=== PATIENT | male | born 1990 | race Caucasian/White ===

== ENCOUNTER 2025-02-18 11:37 | Emergency (ER) | payer OTHER, SELFPAY ==
[2025-02-18 11:45] VITALS: BP 155/99; PULSE 68; TEMP 36.9; O2SAT 98; BMI 40.7
--- NOTE | 2025-02-18 12:12 | XR_ITS ---
The [address] [address] Patient Name: SILVIA CHEN MRN: [id number] date: 1990 Sex: M Assigned Patient Location: ED.MAIN Current Patient Location: ER Accession/Order Number: [id number] Exam Date: 02/18/2025 12:35 Report Date: 02/18/2025 13:04 At the request of: YOVANA CORONA MD Procedure: XR abdomen 1V SINGLE VIEW ABDOMEN CLINICAL DATA: Abdominal pain, heartburn, diarrhea and hematemesis COMPARISON: None Supine views of the abdomen and pelvis were obtained. There is air at the hepatic flexure. There is paucity of bowel gas throughout the remainder of the abdomen and pelvis. No significant colonic stool is seen. No soft tissue masses or abnormal calcifications are identified. There is dextroscoliotic curvature and degenerative changes at the spine. There is suspicion of old hip dysplasia on the left. XR/XR abdomen 1V IMPRESSION: NONSPECIFIC ABDOMEN WITH RELATIVE PAUCITY OF BOWEL GAS. Impression dictated by: Ct Lantigua M.D. 02/18/2025 1:04 PM Dictation Location: [place] [address] Electronically authenticated by: [id number] Y Date: 02/18/2025 13:04
[2025-02-18 12:34] LABS: Hematocrit 42.5 % (42.0-54.0); Hemoglobin 14.5 g/dL (14.0-18.0); Immature Granulocytes Abs Auto 0.05 10^3/uL (0.00-0.03); Immature Granulocytes Pct Auto 0.3 % (0.0-0.5); Lymphocytes Absolute Auto 1.7 10^3/uL (1.2-3.8); Mean Corpuscular HGB Conc 34.1 g/dL (29.9-35.2); Mean Corpuscular Hemoglobin 29.7 pg (25.9-34.0); Mean Corpuscular Volume 87.1 fL (80.0-94.0); Platelet Count 307 10^3/uL (150-450); Red Blood Count 4.88 10^6/uL (4.70-6.10); White Blood Count 17.2 10^3/uL (4.0-11.0)
[2025-02-18 12:48] LABS: Alanine Aminotransferase 33 U/L (16-63); Albumin Globulin Ratio 1.0; Albumin Level 4.2 g/dL (3.4-5.0); Alkaline Phosphatase 155 U/L (46-116); Anion Gap 13.3; Aspartate Amino Transferase 26 U/L (15-37); Blood Urea Nitrogen 28.0 mg/dL (7.0-18.0); Calcium 9.6 mg/dL (8.5-10.1); Carbon Dioxide 29.7 mmol/L (21.0-32.0); Chloride 104 mmol/L (98-107); Estimated GFR (African America >60 (>=60 mL/min/1.73m^2); Estimated GFR (Non-African Ame >60 (>=60 mL/min/1.73m^2); Globulin 4.0 g/dL; Glucose 106 mg/dL (74-106); Potassium 4.0 mmol/L (3.5-5.1); Sodium 143 mmol/L (136-145); Total Protein 8.2 g/dL (6.4-8.2)
--- NOTE | 2025-02-18 12:53 | US_ITS ---
The [address] [address] Patient Name: SILVIA CHEN MRN: [id number] date: 1990 Sex: M Assigned Patient Location: ER Current Patient Location: ER Accession/Order Number: [id number] Exam Date: 02/18/2025 12:55 Report Date: 02/18/2025 13:48 At the request of: YOVANA CORONA MD Procedure: US right upper quadrant LIMITED RIGHT UPPER QUADRANT ABDOMINAL ULTRASOUND CLINICAL HISTORY: Nausea, vomiting and abdominal pain COMPARISON: None The gallbladder is physiologically distended without shadowing calculi, wall thickening or pericholecystic fluid. No intra- or extrahepatic biliary dilatation is evident. The common duct measures 2 - 3 mm. No focal intrahepatic lesions were identified. There is appropriate hepatopetal flow within the main portal vein. The pancreas is poorly visualized due to bowel gas. Evaluation of the right kidney reveals no hydronephrosis or fluid within Mathis's pouch. US/US right upper quadrant IMPRESSION: NO GALLBLADDER PATHOLOGY. POORLY VISUALIZED PANCREAS. Impression dictated by: Ct Lantigua M.D. 02/18/2025 1:48 PM Dictation Location: [place] [address] Electronically authenticated by: [id number] Y Date: 02/18/2025 13:48
[2025-02-18] MEDS: ONDANSETRON 4 MG RAPDIS TABLET SL (14:08)
--- NOTE | 2025-02-18 14:08 | ED.NAVMDI1 ---
HPI - Nausea/Vomiting/Diarrhea General Chief complaint: Nausea/Vomiting/Diarrhea Stated complaint: VOMITING Time Seen by Provider: 02/18/25 11:57 Source: patient Mode of arrival: walk-in Limitations: no limitations History of Present Illness HPI Narrative: The patient initially presented to us for complaint of abdominal discomfort mostly epigastric associated with dull ache that is consistent although sometimes he will feel little bit more than that pain and will have vomiting, the patient over the last 2 days has been having more vomiting he did notice some streaks of blood at the last time he vomited The patient initially did not mention that he had his daughter also had similar symptoms at home. Although initially was concerned about the chronic symptoms of having discomfort in his right upper quadrant and epigastric area Patient mentioned that he also had a dark stool when asked about any black stool and he mentioned that he did not have any blood in the stool but he has been using ibuprofen more lately because he have a history of joint pain and he also have a lot of stress because he is taking care of his Related Data Home Medications ?Medication ?Instructions ?Recorded ?Confirmed buprenorphine 8 mg-naloxone 2 mg film 02/18/25 sublingual film Previous Rx's ?Medication ?Instructions ?Recorded famotidine 20 mg tablet (Pepcid) 20 mg PO BID #10 tabs 02/18/25 meloxicam 15 mg tablet 15 mg PO DAILY PRN pain #10 tabs 02/18/25 ondansetron 4 mg disintegrating 4 mg PO Q8H PRN nausea and 02/18/25 tablet vomiting 3 days #10 tabs pantoprazole 40 mg tablet,delayed 40 mg PO DAILY #30 tabs 02/18/25 release (Protonix) Allergies Allergy/AdvReac Type Severity Reaction Status Date / Time Penicillins Allergy hives Verified 02/18/25 11:49 Review of Systems ROS Status of ROS 10 or more systems reviewed and unremarkable except as noted in history and below PFSH PFSH Social History Little interest or pleasure in doing things: not at all Feeling down, depressed, or hopeless: not at all Exam Narrative Exam Narrative: Nurses notes and vital signs reviewed and patient is not hypoxic. General: Well-appearing and in no apparent distress. Skin: Warm, dry, no pallor noted. No rash. Head: Normocephalic, atraumatic. Neck: Supple, non-tender. Cardiovascular: Regular Rate and Rhythm without murmur, gallop or rub. Respiratory: No accessory muscle use or respiratory distress. Lungs are clear to auscultation, no wheezing, rales or rhonchi GI: Abdomen is soft, non-distended. Epigastric discomfort Neurological: A&O x4. No cranial nerve dysfunction observed. No truncal ataxia. Moves all extremities. Sensation intact. Psychiatric: Cooperative and interactive. Normal mood and affect. Constitutional Vital Signs, click to edit/add: Last Vital Signs Temp 98.4 F 02/18/25 11:45 Pulse 68 02/18/25 11:45 Resp 18 02/18/25 11:45 BP 155/99 H 02/18/25 11:45 Pulse Ox 98 02/18/25 11:45 O2 Del Method Room Air 02/18/25 11:45 Course Vital Signs Vital signs: Vital Signs Temperature 98.4 F 02/18/25 11:45 Pulse Rate 68 02/18/25 11:45 Respiratory Rate 18 02/18/25 11:45 Blood Pressure 155/99 H 02/18/25 11:45 Pulse Oximetry 98 02/18/25 11:45 Oxygen Delivery Method Room Air 02/18/25 11:45 Temperature 98.4 F 02/18/25 11:45 Pulse Rate 68 02/18/25 11:45 Respiratory Rate 18 02/18/25 11:45 Blood Pressure 155/99 H 02/18/25 11:45 Pulse Oximetry 98 02/18/25 11:45 Oxygen Delivery Method Room Air 02/18/25 11:45 MDM - Nausea/Vomiting/Diarrhea MDM Narrative Medical decision making narrative: The patient initially was describing abdominal pain that is chronic and got exacerbated over the last few days, with multiple episodes of vomiting and blood in the vomitus over the last 24 hours although it was only a streaks The patient had an x-ray of the abdomen that showed no acute pathology and his CBC shows leukocytosis of the chemistry showing some mild elevation of the alk phos and it with a white blood cell of 17 I need to make sure that the patient gallbladder is within normal Specially that the patient mentioned that he is not tolerating p.o. intake The patient was provided with a GI cocktail to help with possible gastritis and he also had Zofran for nausea. His ultrasound of the right upper quadrant showed no acute pathology The patient initially did not mention that his daughter also had similar symptoms for the past few days and his presentation right now could be a viral in top of his chronic baseline acid reflux history The patient was discharged home with Pepcid and Protonix in addition to Zofran The patient to follow-up with the primary care within 2 to 3 days and to come back to the ER in case of any worsening of the current symptoms or any new symptoms or concerns Lab Data Labs: Lab Results 02/18/25 Range/Units 12:21 WBC 17.2 H (4.0-11.0) 10^3/uL RBC 4.88 (4.70-6.10) 10^6/uL Hgb 14.5 (14.0-18.0) g/dL Hct 42.5 (42.0-54.0) % MCV 87.1 (80.0-94.0) fL MCH 29.7 (25.9-34.0) pg MCHC 34.1 (29.9-35.2) g/dL RDW 13.2 (11.0-15.0) % Plt Count 307 (150-450) 10^3/uL MPV 8.4 L (9.5-13.5) fL Neut % (Auto) 83.6 H (43.0-75.0) % Lymph % (Auto) 9.9 L (20.5-60.0) % [place] % (Auto) 5.6 (1.7-12.0) % Eos % (Auto) 0.3 L (0.9-7.0) % Baso % (Auto) 0.3 (0.2-2.0) % Neut # (Auto) 14.4 H (1.4-6.5) 10^3/uL Lymph # (Auto) 1.7 (1.2-3.8) 10^3/uL [place] # (Auto) 1.0 H (0.3-0.8) 10^3/uL Eos # (Auto) 0.1 (0.0-0.7) 10^3/uL Baso # (Auto) 0.1 (0.0-0.1) 10^3/uL Abs Immat Gran (auto) 0.05 H (0.00-0.03) 10^3/uL Imm/Tot Granulo (auto) 0.3 (0.0-0.5) % Sodium 143 (136-145) mmol/L Potassium 4.0 (3.5-5.1) mmol/L Chloride 104 (98-107) mmol/L Carbon Dioxide 29.7 (21.0-32.0) mmol/L Anion Gap 13.3 BUN 28.0 H (7.0-18.0) mg/dL Creatinine 0.67 L (0.70-1.30) mg/dL Est GFR ( Amer) >60 (>=60 mL/min/1.73m^2) Est GFR (Non-Af Amer) >60 (>=60 mL/min/1.73m^2) BUN/Creatinine Ratio 41.8 Glucose 106 (74-106) mg/dL Calcium 9.6 (8.5-10.1) mg/dL Total Bilirubin 0.4 (0.2-1.0) mg/dL AST 26 (15-37) U/L ALT 33 (16-63) U/L Alkaline Phosphatase 155 H (46-116) U/L Total Protein 8.2 (6.4-8.2) g/dL Albumin 4.2 (3.4-5.0) g/dL Globulin 4.0 g/dL Albumin/Globulin Ratio 1.0 Discharge Plan Discharge Chief Complaint: Nausea/Vomiting/Diarrhea Clinical Impression: Gastroenteritis, Gastritis Patient Disposition: Home, Self-Care Time of Disposition Decision: 14:15 Condition: Good Prescriptions / Home Meds: New famotidine [Pepcid] 20 mg tablet 20 mg PO BID Qty: 10 0RF pantoprazole [Protonix] 40 mg tablet,delayed release (DR/EC) 40 mg PO DAILY Qty: 30 0RF ondansetron 4 mg tablet,disintegrating 4 mg PO Q8H PRN (Reason: nausea and vomiting) 3 Days Qty: 10 0RF meloxicam 15 mg tablet 15 mg PO DAILY PRN (Reason: pain) Qty: 10 0RF Discontinued ibuprofen 800 mg tablet No Action buprenorphine-naloxone 8-2 mg film Print Language: Macedonian Instructions: Diet for Stomach Ulcers and Gastritis (ED), Acute Nausea and Vomiting (DC) Additional Instructions: Please make sure to come back to the ER in case any new symptoms Please make sure that you follow-up with your primary care doctor for further evaluation and to be referred to gastroenterology in case need Referrals: CAMELIA MCCOY [Primary Care Provider, [facility]] - 1 week Discharge Date/Time: 02/18/25 14:41
== END 2025-02-18 14:41 | disposition home or self-care (01) ==
PROVIDERS: Emergency Provider Emergency Medicine; PCP Nurse Practitioner
DX: K52.9 Noninfective gastroenteritis and colitis, unspecified (principal); K29.70 Gastritis, unspecified, without bleeding
CPT/HCPCS: 36415; 74018; 76705; 80053; 85025; 99284; Q0162